=== PATIENT | female | born 1965 | race African-American/Black ===

== ENCOUNTER 2019-12-04 08:18 | Outpatient (CLI) | payer OTHER ==
[2019-12-04 09:14] LABS: Eosinophils 4 % (0-10); Hemoglobin 12.6 g/dL (12.0-16.0); Lymphocytes 57 % (21-51); MDiff Complete? YES; Mean Corpuscular HGB CONC 30.9 g/dL (32.0-36.0); Mean Corpuscular Hemoglobin 31.2 pg (27.0-31.0); Mean Platelet Volume 6.9 fL (7.4-10.4); Monocytes 2 % (0-10); Neutrophil 37 % (42-75); Platelet Count 367 thou/uL (130-400); RBC Distribution Width 13.8 % (11.5-14.5); Red Blood Cell (RBC) Count 4.05 mill/uL (4.20-5.40); White Blood Cell (WBC) Count 4.9 thou/uL (4.8-10.8)
[2019-12-04 09:37] LABS: ALT (SGPT) 20 U/L (8-55); AST (SGOT) 16 U/L (5-34); Albumin 4.5 g/dL (3.5-5.0); Alkaline Phosphatase 77 U/L (40-110); Anion Gap 14 mmol/L (10-20); BUN (Urea Nitrogen) 15 mg/dL (9.8-20.1); Bilirubin, Total 0.4 mg/dL (0.2-1.2); CRP (Inflammatory) Less than 0.50 mg/dL (= or < 0.5); Calc. Creatinine Clearance 0 mL/min (70-130); Calcium 9.4 mg/dL (7.8-10.44); Carbon Dioxide 22 mmol/L (22-29); Chloride 108 mmol/L (98-107); Estimated GFR-MDRD 70; Globulin 2.5 g/dL (2.4-3.5); Glucose 100 mg/dL (70-105); Potassium 4.1 mmol/L (3.5-5.1); Sodium 140 mmol/L (136-145)
--- NOTE | 2019-12-05 14:32 | RAD ---
LEFT HAND THREE VIEWS: 12/04/19 Comparison is made with finger films of 2011. No acute fracture was seen. The joints showed no acute findings. The carpal relationships seem normal. There is some unusual periosteal reaction alongside the radial styloid process that was not present i n 2011. Some of it is perpendicular to the bone, sometimes a worrisome finding. Nevertheless, the ove rall appearance seems more benign than not. See comments below. IMPRESSION: 1. No acute traumatic changes. 2. Unusual periosteal reaction alongside the radial styloid process. The appearance is curious. This could be something as benign as due to chronic inflammation in the region (such as de Quervain's ). Malignant causes are technically possible, but seem less likely given the appearance. In consultin g with a musculoskeletal radiologist, it was felt that the safest course of action might be to consid er an MRI to ensure that the bone in the region is not abnormal. While the general feeling is there i s a greater likelihood of this being benign than not, some sort of follow-up might be prudent. Code T POS: HOME
== END 2019-12-04 08:19 | disposition home or self-care (01) ==
LOC: BURRAD 08:18
PROVIDERS: ATTEND Internal Medicine
DX: M18.0 Bilateral primary osteoarthritis of first carpometacarpal joints (principal); H20.00 Unspecified acute and subacute iridocyclitis; R76.0 Raised antibody titer; Z79.899 Other long term (current) drug therapy
CPT/HCPCS: 36415; 80053; 85025; 85652; 86140; 86256

== ENCOUNTER 2020-01-23 18:18 | Emergency (ER) | payer OTHER ==
[2020-01-24 14:45] LABS: SARS-CoV-2 MS2 Positive; SARS-CoV-2 N Gene Negative; SARS-CoV-2 S Gene Negative; SARS-CoV-2 by NAA Not Detected (NotDetected); SARS-CoV-2 orf1ab Negative
== END 2020-01-23 18:52 | disposition home or self-care (01) ==
LOC: BURERS 18:18
DX: Z20.828 Contact with and (suspected) exposure to other viral communicable diseases (principal); I48.91 Unspecified atrial fibrillation; I49.9 Cardiac arrhythmia, unspecified; E03.9 Hypothyroidism, unspecified; M19.90 Unspecified osteoarthritis, unspecified site; J44.9 Chronic obstructive pulmonary disease, unspecified; F31.9 Bipolar disorder, unspecified; F41.9 Anxiety disorder, unspecified; F17.210 Nicotine dependence, cigarettes, uncomplicated; Z79.899 Other long term (current) drug therapy; Z79.51 Long term (current) use of inhaled steroids
CPT/HCPCS: 87635; 99283; U0003

== ENCOUNTER 2020-02-29 10:02 | Emergency (ER) | payer OTHER ==
[2020-02-29 10:22] LABS: #Basophils 0.1 thou/uL (0.0-0.2); #Eosinphils 0.2 thou/uL (0.0-0.7); #Lymphocytes 2.5 thou/uL (1.20-3.40); #Monocytes 0.4 thou/uL (0.11-0.59); #Neutrophils 2.4 thou/uL (1.40-6.50); %Basophils 1.4 % (0.0-1.0); %Eosinophils 3.7 % (0.0-10.0); %Lymphocytes 44.6 % (21.0-51.0); %Neutrophils 43.4 % (42.0-75.0); Hemoglobin 12.4 g/dL (12.0-16.0); Mean Corpuscular HGB CONC 32.4 g/dL (32.0-36.0); Mean Corpuscular Hemoglobin 32.3 pg (27.0-31.0); Mean Corpuscular Volume 99.7 fL (78.0-98.0); Mean Platelet Volume 6.7 fL (7.4-10.4); Platelet Count 354 thou/uL (130-400); RBC Distribution Width 13.2 % (11.5-14.5); Red Blood Cell (RBC) Count 3.82 mill/uL (4.20-5.40); White Blood Cell (WBC) Count 5.5 thou/uL (4.8-10.8)
[2020-02-29] MEDS ORDERED: Lorazepam 2 MG/ML VIAL ONE (10:23)
[2020-02-29] MEDS ORDERED: Aspirin Chewable 81 MG TAB ONE (10:23)
[2020-02-29 10:39] LABS: ALT (SGPT) 26 U/L (8-55); AST (SGOT) 19 U/L (5-34); Albumin 4.3 g/dL (3.5-5.0); Alkaline Phosphatase 93 U/L (40-110); Anion Gap 15 mmol/L (10-20); BUN (Urea Nitrogen) 15 mg/dL (9.8-20.1); Bilirubin, Total 0.3 mg/dL (0.2-1.2); Calc. Creatinine Clearance 0 mL/min (70-130); Calcium 9.5 mg/dL (7.8-10.44); Carbon Dioxide 21 mmol/L (22-29); Chloride 108 mmol/L (98-107); Estimated GFR-MDRD 68; Globulin 2.9 g/dL (2.4-3.5); Glucose 105 mg/dL (70-105); Potassium 3.8 mmol/L (3.5-5.1); Protein, Total 7.2 g/dL (6.0-8.3); Sodium 140 mmol/L (136-145)
--- NOTE | 2020-02-29 11:39 | CT ---
CT ANGIOGRAM THORAX WITH IV CONTRAST AND 3-D RECONSTRUCTIONS CLINICAL INDICATION: Chest pain. History of cancer. COMPARISON: None FINDINGS: Pulmonary arteries: No filling defects are seen in the pulmonary arteries to suggest a pulmonary embo carmita. Aorta: Minimal vascular calcifications in the aortic arch. Thoracic aorta is normal in caliber withou t evidence of an aortic dissection. Lungs: Pleural calcifications and calcified pleural-based plaque is seen at the right lung base. Mild volume loss is also seen at the right lung base. Minimal emphysematous changes are seen in each lung apex. An approximately 4 mm pleural-based nodule is seen at the lateral aspect left lower lobe. There is ortega btle groundglass nodular density in the anterior aspect left lower lobe (image 61, series 3) measuring approximately 6 mm. This is overall nonspecific, but short interval follow-up exam is recom mended. An approximately 3 mm pulmonary nodule is seen at the posterior aspect right upper lobe. No consolidation or pleural effusion is identified. Mediastinum: There is no evidence of lymphadenopathy. Thyroid gland: Grossly normal appearance for phase of imaging. Osseous structures: No suspicious lytic or sclerotic osseous lesion. Chest wall: No abnormality visualized. Upper abdomen: Within normal limits for phase of imaging. IMPRESSION: 1. Groundglass nodule left lower lobe with a too small to characterize nodule in the right upper lobe and pleural-based nodule left lung base. Follow-up CT thorax in 6-12 months is recommended. 2. No CT evidence of a pulmonary embolus.
--- NOTE | 2020-02-29 17:50 | RAD ---
PORTABLE CHEST: 02/29/20 An AP portable film at 1027 is compared with a 12/30/15 study. No major infiltrate or effusion was see n. The mediastinum showed no acute change. The heart is normal in size. IMPRESSION: No acute thoracic findings. POS: HOME
== END 2020-02-29 11:35 | disposition short-term general hospital (02) ==
LOC: BURERS 10:02
DX: R07.9 Chest pain, unspecified (principal); I48.91 Unspecified atrial fibrillation; E03.9 Hypothyroidism, unspecified; M19.90 Unspecified osteoarthritis, unspecified site; J44.9 Chronic obstructive pulmonary disease, unspecified; F41.9 Anxiety disorder, unspecified; F31.9 Bipolar disorder, unspecified; F17.210 Nicotine dependence, cigarettes, uncomplicated; Z79.51 Long term (current) use of inhaled steroids; Z79.82 Long term (current) use of aspirin; Z79.899 Other long term (current) drug therapy
CPT/HCPCS: 71045; 71275; 80053; 83880; 84484; 85025; 93005; 96374; J2060

== ENCOUNTER 2024-02-20 08:22 | Observation (INO) | payer OTHER ==
[2024-02-20 08:42] LABS: #Basophils 0.1 thou/uL (0.0-0.2); #Eosinphils 0.1 thou/uL (0.0-0.7); #Monocytes 0.5 thou/uL (0.11-0.59); #Neutrophils 6.1 thou/uL (1.40-6.50); %Basophils 1.3 % (0.0-1.0); %Eosinophils 1.3 % (0.0-10.0); %Lymphocytes 22.4 % (21.0-51.0); %Monocytes 5.7 % (0.0-10.0); %Neutrophils 69.2 % (42.0-75.0); Hematocrit 40.2 % (36.0-47.0); Hemoglobin 13.6 g/dL (12.0-16.0); Mean Corpuscular HGB CONC 33.9 g/dL (32.0-36.0); Mean Corpuscular Hemoglobin 29.3 pg (27.0-31.0); Mean Corpuscular Volume 86.4 fl (78.0-98.0); Mean Platelet Volume 5.7 fL (7.4-10.4); Platelet Count 442 10x3/uL (130-400); RBC Distribution Width 12.1 % (11.5-14.5); Red Blood Cell (RBC) Count 4.66 mill/uL (4.20-5.40); White Blood Cell (WBC) Count 8.8 10x3/uL (4.8-10.8)
[2024-02-20 09:00] LABS: ALT (SGPT) 12 U/L (8-55); AST (SGOT) 13 U/L (5-34); Albumin 3.4 g/dL (3.5-5.0); Alkaline Phosphatase 95 U/L (40-110); Anion Gap 15 mmol/L (10-20); BUN (Urea Nitrogen) 11 mg/dL (9.8-20.1); Calc. Creatinine Clearance 0 mL/min (70-130); Calcium 10.2 mg/dL (7.8-10.44); Carbon Dioxide 22 mmol/L (22-29); Chloride 102 mmol/L (98-107); Estimated GFR 87; Globulin 4.8 g/dL (2.4-3.5); Glucose 119 mg/dL (70-105); Potassium 3.9 mmol/L (3.5-5.1); Protein, Total 8.2 g/dL (6.0-8.3); Sodium 135 mmol/L (136-145)
[2024-02-20 09:01] LABS: Troponin I Less than 0.010 ng/mL (< 0.028)
[2024-02-20 12:45] VITALS: BMI 31.8
[2024-02-20] MEDS ORDERED: Ondansetron ODT 4 MG TAB SL PRN (12:56)
[2024-02-20] MEDS ORDERED: Senokot S 8.6-50 MG TAB PO PRN (12:56)
[2024-02-20] MEDS ORDERED: Acetaminophen 325 MG TAB PO PRN (12:56)
[2024-02-20] MEDS: LevoFLOXacin 750 mg/D5W 150 ml Premix Bag ONE (13:14)
[2024-02-20] MEDS: Morphine 4 MG/ML VIAL ONE (13:14)
[2024-02-20] MEDS: Ketorolac Tromethamine 30 MG (1 mL) VIAL ONE (13:14)
[2024-02-20] MEDS: Promethazine HCl 25 MG/ML VIAL ONE (13:14)
[2024-02-20 13:28] LABS: SARS-CoV-2 E Target Positive; SARS-CoV-2 N2 Target Positive; SARS-CoV-2 NAA Rapid Test DETECTED (NotDetected); SARS-CoV-2 RdRP gene Negative
[2024-02-20] MEDS: Enoxaparin 40 MG (0.4 mL) SYRINGE SC SCH ×2 (13:39→13:42)
[2024-02-20] MEDS ORDERED: Albuterol 200 PUFF (6.7GM INHALER) INH PRN ×2 (13:55→19:37)
[2024-02-20] MEDS: Sodium Chloride 0.9% 1,000 ML IV SCH (14:42)
[2024-02-20] MEDS: busPIRone HCl 5 MG TAB PO SCH (14:43)
[2024-02-20] MEDS: Gabapentin 400 MG CAP PO SCH (14:43)
[2024-02-20] MEDS: ALPRAZolam 0.5 MG TAB PO PRN (16:04)
[2024-02-20] MEDS: Ipratropium/Albuterol 3 ML NEB NEB PRN (16:04)
[2024-02-20] MEDS: Montelukast Sodium 10 mg Tablet PO SCH (20:33)
[2024-02-20] MEDS: Famotidine 20 MG TAB PO SCH (20:33)
[2024-02-20] MEDS: Topiramate 100 MG TAB PO SCH (20:33)
[2024-02-20] MEDS: Nortriptyline HCl 25 MG CAP PO SCH (20:34)
[2024-02-20] MEDS: Mometasone 200 MCG/Formoterol 5 MCG 60 PUFF INHALER INH SCH (20:34)
[2024-02-20] MEDS: NIRMATRELVIR 150 MG (X 2)/RITONAVIR 100 MG TAB PO SCH (20:35)
[2024-02-21 05:17] LABS: Anion Gap 12 mmol/L (10-20); BUN (Urea Nitrogen) 10 mg/dL (9.8-20.1); Calc. Creatinine Clearance 96 mL/min (70-130); Calcium 9.5 mg/dL (7.8-10.44); Carbon Dioxide 22 mmol/L (22-29); Chloride 109 mmol/L (98-107); Estimated GFR 84; Glucose 113 mg/dL (70-105); Potassium 4.1 mmol/L (3.5-5.1); Sodium 139 mmol/L (136-145)
[2024-02-21] MEDS: Levothyroxine Sodium 100 MCG TAB PO SCH (06:05)
[2024-02-21] MEDS: Levothyroxine Sodium 25 MCG TAB PO SCH (06:05)
[2024-02-21] MEDS: HYDROcodone/Acetaminophen 10/325 mg Tablet PO PRN (07:42)
[2024-02-21] MEDS: Aspirin 81 mg Enteric Coated Tablet PO SCH (07:42)
[2024-02-21] MEDS: LevoFLOXacin 750 mg/D5W 750 MG in Premix 1 BAG IVPB SCH (10:29)
[2024-02-22] MEDS: Fleet Saline Enema 133 ML BOT PR SCH (08:38)
[2024-02-22 13:18] VITALS: BP 118/70; TEMP 98.2
[2024-02-26] MEDS ORDERED: Methotrexate Sodium 2.5 MG TAB PO SCH (09:00)
== END 2024-02-22 14:30 | disposition home or self-care (01) ==
LOC: BURERS 08:22 → BURMED 11:50
PROVIDERS: ADMIT Family Medicine; ATTEND Family Medicine
DX: J18.9 Pneumonia, unspecified organism (principal); R07.9 Chest pain, unspecified; U07.1 COVID-19; M48.50XA Collapsed vertebra, not elsewhere classified, site unspecified, initial encounter for fracture; K59.00 Constipation, unspecified; I48.91 Unspecified atrial fibrillation; E03.9 Hypothyroidism, unspecified; M06.9 Rheumatoid arthritis, unspecified; M79.7 Fibromyalgia; K21.9 Gastro-esophageal reflux disease without esophagitis; R53.1 Weakness; E86.0 Dehydration; G93.5 Compression of brain; Z98.890 Other specified postprocedural states; Z98.49 Cataract extraction status, unspecified eye; Z90.710 Acquired absence of both cervix and uterus; F41.9 Anxiety disorder, unspecified; F32.A Depression, unspecified; F17.200 Nicotine dependence, unspecified, uncomplicated; Z88.8 Allergy status to other drugs, medicaments and biological substances; Z91.041 Radiographic dye allergy status; Z79.890 Hormone replacement therapy; Z79.82 Long term (current) use of aspirin
CPT/HCPCS: 36415; 71045; 71250; 80048; 80053; 84484; 85025; 87804; 93005; 94664; 94760; 96365; 96372; 96375; 96376; G0378; J1650; J1885; J1956; J2272; J2550; J7030; J7620; J8499; U0002

== ENCOUNTER 2024-06-27 10:14 | Emergency (ER) | payer OTHER ==
[2024-06-27] MEDS ORDERED: Metoclopramide HCl 10 MG (2 mL) VIAL ONE (10:46)
[2024-06-27] MEDS ORDERED: diphenhydrAMINE 50 MG/ML VIAL ONE (10:46)
[2024-06-27] MEDS ORDERED: Dexamethasone 10 MG/ML VIAL ONE (10:46)
[2024-06-27 11:01] LABS: #Basophils 0.1 thou/uL (0.0-0.2); #Eosinophils 0.2 thou/uL (0.0-0.7); #Lymphocytes 1.1 thou/uL (1.20-3.40); #Monocytes 0.3 thou/uL (0.11-0.59); #Neutrophils 2.4 thou/uL (1.40-6.50); %Basophils 2.2 % (0.0-1.0); %Eosinophils 4.1 % (0.0-10.0); %Lymphocytes 27.2 % (21.0-51.0); %Monocytes 7.9 % (0.0-10.0); %Neutrophils 58.6 % (42.0-75.0); Hematocrit 36.6 % (36.0-47.0); Hemoglobin 12.4 g/dL (12.0-16.0); Mean Corpuscular HGB CONC 33.7 g/dL (32.0-36.0); Mean Corpuscular Hemoglobin 29.7 pg (27.0-31.0); Mean Corpuscular Volume 87.9 fl (78.0-98.0); Mean Platelet Volume 5.2 fL (7.4-10.4); Platelet Count 385 10x3/uL (130-400); RBC Distribution Width 11.8 % (11.5-14.5); Red Blood Cell (RBC) Count 4.17 mill/uL (4.20-5.40)
[2024-06-27 11:05] LABS: INR-International Normal Ratio 0.9
[2024-06-27 11:10] LABS: ALT (SGPT) 15 U/L (8-55); AST (SGOT) 12 U/L (5-34); Albumin 3.6 g/dL (3.5-5.0); Alkaline Phosphatase 91 U/L (40-110); Anion Gap 12 mmol/L (10-20); BUN (Urea Nitrogen) 13 mg/dL (9.8-20.1); Bilirubin, Total 0.2 mg/dL (0.2-1.2); Calc. Creatinine Clearance 0 mL/min (70-130); Calcium 9.7 mg/dL (7.8-10.44); Carbon Dioxide 23 mmol/L (22-29); Chloride 109 mmol/L (98-107); Estimated GFR 75; Globulin 3.5 g/dL (2.4-3.5); Glucose 126 mg/dL (70-105); Potassium 3.7 mmol/L (3.5-5.1); Protein, Total 7.1 g/dL (6.0-8.3); Sodium 140 mmol/L (136-145)
== END 2024-06-27 13:03 | disposition home or self-care (01) ==
LOC: BURERS 10:14
DX: S06.0XAA Concussion with loss of consciousness status unknown, initial encounter (principal); I48.91 Unspecified atrial fibrillation; J44.9 Chronic obstructive pulmonary disease, unspecified; F17.210 Nicotine dependence, cigarettes, uncomplicated; W19.XXXA Unspecified fall, initial encounter
CPT/HCPCS: 36415; 70450; 72125; 80053; 85025; 85610; 96374; 96375; J1100; J1200; J2765